=== PATIENT | female | born 1950 | race Caucasian/White ===

== ENCOUNTER 2016-06-23 05:35 | Inpatient (IN) | payer OTHER ==
[2016-06-23] VITALS (8 sets, daily range): BP systolic 116–156; BP diastolic 56–86
[~2016-06-23] VITALS: Ht 170.2 cm; Wt 111.1 kg
--- NOTE | ~2016-06-23 | O ---
[facility] [place] [address] OPERATIVE REPORT Name: DEANNE RIVAS Room #: 540-P [facility] IN M.R.#: [id number] Admission: 06/23/16 Attend Phys: Mauricio Barrientos MD Discharge: Date of : 54 Report #: [id number] THIS REPORT FOR: //name// CC: Ioana Barrientos DATE OF SERVICE: 06/23/2016 PREOPERATIVE DIAGNOSIS: Right foot Lisfranc fracture dislocation. POSTOPERATIVE DIAGNOSIS: Right foot Lisfranc fracture dislocation. PROCEDURE: Right foot percutaneous screw Lisfranc fracture dislocation. SURGEON: Mauricio Barrientos M.D. ANESTHESIA: General. ESTIMATED BLOOD LOSS: Minimal. DRAINS: None. TOURNIQUET TIME: 15 minutes. DESCRIPTION OF PROCEDURE: The patient brought to the operating room where she was placed under general anesthesia. Once under adequate general anesthesia, her right lower extremity was prepped and draped in sterile manner. Extremity was elevated, exsanguinated, tourniquet placed to 300 mmHg. A bone reduction tenaculum was then placed under fluoroscopic guidance across the Lisfranc joint from the base of the second metatarsal through the medial cuneiform. Subsequent to this, a single 4.0 cannulated screw was placed across the Lisfranc joint. Excellent fixation and alignment was achieved in this manner. The wound was irrigated copiously and closed with melissa for the skin and the wound was dressed with Xeroform, 4 x 4s, and sterile soft compressive dressing was placed. Tourniquet was let down approximately 15 minutes. Toes were pink and warm with good capillary refill. There were no complications from the procedure. The patient tolerated the procedure well and went to the recovery room without incident. <ELECTRONICALLY SIGNED> By: Mauricio Barrientos MD 06/23/16 1344 [id number] Mauricio Barrientos MD /nt
--- NOTE | ~2016-06-23 | H ---
[facility] [address] [place] [address] HISTORY AND PHYSICAL Name: DEANNE RIVAS Room #: 540-P [facility] IN M.R.#: [id number] Admission: 06/23/16 Attend Phys: Mauricio Barrientos MD Discharge: 06/28/16 Date of : 54 Report #: [id number] THIS REPORT FOR: //name// For History and Physical, please see office documentation/handwritten note in the patient's medical record. <ELECTRONICALLY SIGNED> By: Mauricio Barrientos MD 07/05/16 1107 1020 Mauricio Barrientos MD /
[~2016-06-23 05:35] MED LIST: ACTOS 30 MG TAB30 M2 PO; FLEXERIL PO; GLIPIZIDE 10 MG10 MG PO; GLUCOPHAGE XR500 MG PO; HYDROCODONE-AP1 EAC6 PO; INDERAL 20 MG T20 M1 PO; LIPITOR 20 MG T20 M1 PO; PRIMIDONE50 MG PO; TRAMADOL 50 MG50 MG PO
[2016-06-24 00:36] VITALS: BP 101/64
[2016-06-24 05:31] LABS: HEMATOCRIT 34.6 % (37.0-47.0); HEMOGLOBIN 11.8 gm/dL (12.0-15.0)
[2016-06-24 06:33] VITALS: BP 148/73
[2016-06-24 08:36] VITALS: BP 136/67
[2016-06-24 16:04] VITALS: BP 135/67
[2016-06-24 19:49] VITALS: BP 121/58
[2016-06-25 04:00] VITALS: BP 154/82
[2016-06-25 07:30] VITALS: BP 152/77
[2016-06-25 20:26] VITALS: BP 144/80
[2016-06-26 03:38] VITALS: BP 151/75
[2016-06-26 07:11] VITALS: BP 149/73
[2016-06-26 17:13] VITALS: BP 149/68
[2016-06-26 20:00] VITALS: BP 167/90
[2016-06-27 04:00] VITALS: BP 125/61
[2016-06-27 08:27] VITALS: BP 145/70
[2016-06-27 20:00] VITALS: BP 157/92
[2016-06-28 04:00] VITALS: BP 152/78
[2016-06-28 08:51] VITALS: BP 142/74
[2016-06-28 11:11] VITALS: BP 112/48
[2016-06-28 11:22] VITALS: BP 181/106
== END 2016-06-28 13:59 | DRG 505 ==
LOC: PRE → 5S 05:35 → TBA 05:35 → PRE 08:21 → 5S 09:21 → PRE 11:38 → 5S 06-28 13:59
PROVIDERS: Orthopaedic Surgery Foot and Ankle Surgery
PROC: 0SH Lower Joints, Insertion (ICD-10-PCS; principal; 2016-06-23)
DX: S93.324A Dislocation of tarsometatarsal joint of right foot, initial encounter (principal); S92.811A Other fracture of right foot, initial encounter for closed fracture; E66.9 Obesity, unspecified; Z88.0 Allergy status to penicillin; W18.39XA Other fall on same level, initial encounter; Y93.89 Activity, other specified; Y92.89 Other specified places as the place of occurrence of the external cause; Y99.8 Other external cause status; Z68.38 Body mass index [BMI] 38.0-38.9, adult
CPT/HCPCS: 10785; 50010; 50101; 50386; 51122; 51412; 56526; 57091; 62110; 62900; 64037; 70005